=== PATIENT | female | born 1945 | race Caucasian/White ===

== ENCOUNTER 2017-02-18 11:44 | Inpatient (IN) | payer OTHER ==
[2017-02-18] MEDS ORDERED: HEPARIN 1000 UNITS/ML 10 ML INJ (13:39)
[2017-02-18] MEDS ORDERED: LIDOCAINE 1% (MDV) 20 ML INJ (13:39)
[2017-02-18] MEDS ORDERED: FENTAnyl 50 MCG/ML VIAL (13:39)
[2017-02-18] MEDS ORDERED: IODIXANOL LOCM 100 ML BTL (13:39)
[2017-02-18] MEDS ORDERED: MIDAZOLAM 1 MG/ML 2 ML INJ (13:40)
[2017-02-18] MEDS ORDERED: SOD CHLORIDE 0.9% 500 ML (14:15)
[2017-02-18] MEDS ORDERED: BIVALIRUDIN 250MG /NS 50 ML 50 ML IVPB (14:15)
[2017-02-18] MEDS ORDERED: CLOPIDOGREL 300 MG TAB (14:22)
[2017-02-18] MEDS: ACCU-CHEK XX ×2 (17:30→21:00)
[2017-02-18] MEDS ORDERED: GLUCOSE GEL 15 GRAM TUBE BUCCAL (19:30)
[2017-02-18] MEDS ORDERED: GLUCOSE GEL 15 GRAM TUBE PO ×2 (19:30)
[2017-02-18] MEDS ORDERED: GLUCAGON 1 MG INJ IM (19:30)
[2017-02-18] MEDS ORDERED: DEXTROSE 50% 50 ML SYRINGE IV ×2 (19:30)
[2017-02-18] MEDS: ATORVASTATIN 40 MG TAB PO (21:34)
[2017-02-18] MEDS: INSULIN DETEMIR [LEVEMIR] 3ML CART SC (21:36)
[2017-02-19] MEDS ORDERED: PANTOPRAZOLE (EC) 40 MG TAB PO (04:53)
[2017-02-19 05:52] LABS: ADD MAN DIFF? NO
[2017-02-19] MEDS: PANTOPRAZOLE (EC) 40 MG TAB PO (05:56)
[2017-02-19 06:03] LABS: WHITE BLOOD COUNT 7.4 10^3/ul (4.8-10.8)
[2017-02-19 06:03] LABS: BASOPHILS % 0.4 % (0.0-2.0); EOSINOPHILS # 0.1 10^3/ul (0.0-0.5); EOSINOPHILS % 1.9 % (0.0-7.0); HEMOGLOBIN 11.4 g/dl (12.0-16.0); LYMPHOCYTES # 1.7 10^3/ul (0.8-2.9); LYMPHOCYTES % 23.4 % (15.0-51.0); MEAN CORPUSCULAR HEMOGLOBIN 29.8 pg (29.0-33.0); MEAN CORPUSCULAR HGB CONC 34.5 g/dl (32.0-37.0); MEAN CORPUSCULAR VOLUME 86.2 fl (82.0-101.0); MEAN PLATELET VOLUME 12.7 fl (7.4-10.4); MONOCYTE # 0.9 10^3/ul (0.3-0.9); MONOCYTES % 11.6 % (0.0-11.0); NEUTROPHIL # 4.6 10^3/ul (1.6-7.5); NEUTROPHILS % 62.2 % (39.0-77.0); PLATELET COUNT 190 10^3/UL (140-415); RED BLOOD COUNT 3.83 10^6/ul (4.20-5.40); RED CELL DISTRIBUTION WIDTH 14.6 % (11.5-14.5)
[2017-02-19 06:16] LABS: ANION GAP 12 (8-16); BLOOD UREA NITROGEN 11 mg/dl (7-20); CALCIUM 8.5 mg/dl (8.4-10.2); CARBON DIOXIDE 24 mmol/L (21-31); CHLORIDE 104 mmol/L (97-110); CREATININE 0.56 mg/dl (0.44-1.00); GLUCOSE 228 mg/dl (70-220); POTASSIUM 3.7 mmol/L (3.5-5.1); SODIUM 136 mmol/L (135-144)
[2017-02-19] MEDS: LISINOPRIL 10 MG TAB PO (08:18)
[2017-02-19] MEDS: ASPIRIN 81 MG TAB PO (08:18)
[2017-02-19] MEDS: CLOPIDOGREL 75 MG TAB PO (08:18)
[2017-02-19] MEDS: INSULIN ASPART [NOVOLOG] 3 ML PEN SC ×6 (08:22→22:54)
[2017-02-19] MEDS: INSULIN DETEMIR [LEVEMIR] 3ML CART SC (20:19)
[2017-02-19] MEDS: ATORVASTATIN 40 MG TAB PO (22:31)
[2017-02-20] MEDS: PANTOPRAZOLE (EC) 40 MG TAB PO (05:48)
[2017-02-20] MEDS: ASPIRIN 81 MG TAB PO (08:01)
[2017-02-20] MEDS: INSULIN ASPART [NOVOLOG] 3 ML PEN SC ×2 (08:06→12:00)
[2017-02-20] MEDS: CLOPIDOGREL 75 MG TAB PO (10:43)
[2017-02-20] MEDS: LISINOPRIL 10 MG TAB PO (10:43)
[2017-02-22] MEDS ORDERED: INFLUENZA VIRUS VACCINE 0.5 ML (DISPENSING) IM* (09:00)
== END 2017-02-20 18:20 | disposition home or self-care (01) | DRG 247 ==
LOC: CCL 11:44 → MS3 02-19 15:40 → ICU 20:00
PROVIDERS: Internal Medicine Interventional Cardiology
PROC: 027034Z Dilation of Coronary Artery, One Artery with Drug-eluting Intraluminal Device, Percutaneous Approach (ICD-10-PCS; principal; 2017-02-18 13:24)
PROC: 4A023N7 Measurement of Cardiac Sampling and Pressure, Left Heart, Percutaneous Approach (ICD-10-PCS; 2017-02-18 13:24)
PROC: B310YZZ Fluoroscopy of Thoracic Aorta using Other Contrast (ICD-10-PCS; 2017-02-18 13:24)
PROC: B211YZZ Fluoroscopy of Multiple Coronary Arteries using Other Contrast (ICD-10-PCS; 2017-02-18 13:24)
PROC: B212YZZ Fluoroscopy of Single Coronary Artery Bypass Graft using Other Contrast (ICD-10-PCS; 2017-02-18 13:24)
PROC: B218YZZ Fluoroscopy of Left Internal Mammary Bypass Graft using Other Contrast (ICD-10-PCS; 2017-02-18 13:24)
PROC: B215YZZ Fluoroscopy of Left Heart using Other Contrast (ICD-10-PCS; 2017-02-18 13:24)
DX: I21.4 Non-ST elevation (NSTEMI) myocardial infarction (principal); E11.9 Type 2 diabetes mellitus without complications; I10 Essential (primary) hypertension; I25.10 Atherosclerotic heart disease of native coronary artery without angina pectoris; K21.9 Gastro-esophageal reflux disease without esophagitis; E78.00 Pure hypercholesterolemia, unspecified; Z95.1 Presence of aortocoronary bypass graft; Z79.4 Long term (current) use of insulin
CPT/HCPCS: 71045; 80048; 82962; 85025; 87040; 87086; 93459